=== PATIENT | male | born 1960 | race Caucasian/White ===

== ENCOUNTER 2018-09-07 13:20 | Observation (INO) ==
--- NOTE | 2018-09-07 13:56 | Emergency Department Note ---
Disposition Clinical Impression: ACS (acute coronary syndrome) Disposition: Admitted As Inpatient Condition: Good Referrals: Ana M Donald CNP [Primary Care Provider] - Forms: ED Satisfaction Letter General Adult HPI - General Chief complaint: ED Chest Pain Stated complaint: chest pain Time Seen by Provider: 09/07/18 13:32 Source: patient Limitations: no limitations Nursing Notes Reviewed: Yes Vital Signs Reviewed: Yes - History of Present Illness HPI Narrative: 57-year-old male history of diabetes former smoker hypertension hypercholesterolemia presents with his daughter ambulatory for chest pressure for the past 3 days getting worse. He says it is worse when he moves around last seconds to minutes. General bit winded. No nausea no diaphoresis nor radiation to the neck trauma shoulder on either side. Patient said he had a stress test back in 2012 which prompted a cardiac catheterization which showed avascular with a 30% lesion. They did not do balloon angioplasty nor stent at that time. Patient has had no cardiac stress test in follow-up since then. Patient's pain is good state of health until about the past 3-4 days. Patient is pain-free at this time. Here for further evaluation Pain Scale: 5 - Related Data Home Medications Medication Instructions Recorded Confirmed Unable To Obtain [Unable to Obtain] 09/07/18 09/07/18 Allergies Allergy/AdvReac Type Severity Reaction Status Date / Time No Known Allergies Allergy Verified 09/07/18 13:31 All systems ED: reviewed and negative except as stated. Cardiovascular: Reports: chest pain Respiratory: Reports: dyspnea Past Medical History - Past Medical History Attestation: Yes The following information was validated with the patient. Source: patient Medical history: Reports: diabetes, hyperlipidemia, hypertension, other Psychiatric history: Reports: no psych history - Social History Smoking Status: Never smoker Smokeless Tobacco Status: No Alcohol use: Reports: none Drug use: Reports: none Physical Exam - General Limitations: no limitations General appearance: alert, in no apparent distress - Head Head exam: atraumatic, normocephalic - Eye Eye exam: Present: normal appearance, PERRL - ENT ENT exam: normal exam, normal oropharynx - Neck Neck exam: Present: normal inspection, full ROM - Chest Chest inspection: Present: normal inspection, symmetric chest wall rise - Respiratory Respiratory exam: Present: normal lung sounds bilaterally - Cardiovascular Cardiovascular exam: Present: regular rate, normal rhythm - Abdominal Exam Abdominal exam: Present: soft, Non-Tender - Extremities Exam Extremities exam: Present: normal inspection, full ROM - Expanded Lower Extremity Exam Neurovascular/Tendon exam: Present: normal capillary refill, pulse deficit - Back Exam Back exam: Present: normal inspection, full ROM - Neurological Exam Neurological exam: Present: alert, oriented X3, CN II-XII intact - Psychiatric Psychiatric exam: Present: normal affect, normal mood - Skin Skin exam: Present: warm, dry, intact Course - Reevaluation(s) Reevaluation #1: Patient's HEART scores for, we will undergo troponin chest x-ray and screening labs. Other than showed decision-making the patient and will come up with the plan. Disposition pending Time: 13:58 Reevaluation #2: ED workup is been completed. Chest x-ray screening labs troponin negative were within normal limits. Please see Lee decision-making tool from the chest pending decision from the [facility] patient's heart score 4 translates into a risk of 17% we will been over the various options and patient and family had a discussion and agree upon admission with stress testing in the morning. Patient will be getting some analgesics for his transient chest pressure hospitalist paged for admission to physician pending Time: 14:50 Vital Signs Temperature 97.8 F 09/07/18 13:28 Pulse Rate 109 09/07/18 13:28 Respiratory Rate 16 09/07/18 13:28 Blood Pressure 148/94 09/07/18 13:28 O2 Sat by Pulse Oximetry 97 09/07/18 13:28 Temperature 97.8 F 09/07/18 13:28 Pulse Rate 109 09/07/18 13:28 Respiratory Rate 16 09/07/18 13:28 Blood Pressure 148/94 09/07/18 13:28 O2 Sat by Pulse Oximetry 97 09/07/18 13:28 Oxygen Delivery Oxygen Delivery Room Air Medical Decision Making - Medical Records Medical records reviewed: Yes I reviewed the patient's medical records. - Lab Data Lab results reviewed: Yes I reviewed the patient's lab results. Result diagrams: 09/07/18 13:40 09/07/18 13:40 Lab Results 09/07/18 09/07/18 09/07/18 Range/Units 13:40 13:40 14:22 WBC 8.8 (4.3-11.1) K/mcL RBC 5.08 (4.19-5.50) M/mcL Hgb 15.3 (12.9-16.9) g/dL Hct 44.7 (37.5-50.1) % MCV 88.0 (83.0-100.0) fL MCH 30.1 (28.0-33.3) pg MCHC 34.2 (31.6-35.5) g/dL RDW 11.9 (11.5-14.5) % Plt Count 186 (140-400) K/mcL MPV 10.0 (9.4-12.4) fL Immature Gran % 0.3 (0-4) % Seg Neutrophils % 64.9 % Lymphocytes % 23.9 % Monocytes % 8.2 % Eosinophils % 2.4 % Basophils % 0.3 % Neutrophils # 5.7 (1.6-8.9) K/mcL Lymphocytes # 2.1 (0.6-4.6) K/mcL Monocytes # 0.7 (0.0-1.3) K/mcL Eosinophils # 0.2 (0.0-0.6) K/mcL Basophils # 0.0 (0.0-0.2) K/mcL Sodium 141 (136-145) mEq/L Potassium 4.0 (3.5-5.1) mEq/L Chloride 109 H (98-107) mEq/L Carbon Dioxide 20 L (23-29) mEq/L BUN 23 H (6-20) mg/dL Creatinine 0.91 (0.70-1.30) mg/dL Est GFR ( Amer) > 60 (> 60) Est GFR (Non-Af Amer) > 60 (> 60) BUN/Creatinine Ratio 25 (6-26) Glucose 115 H (70-105) mg/dL Calculated Osmolality 297 (280-300) Calcium 9.1 (8.6-10.3) mg/dL Troponin I < 0.03 (< 0.04) ng/mL Urine Color Yellow (Yellow) Urine Clarity Clear (Clear) Urine pH 5.5 (5.0-8.0) pH Units Ur Specific [place] 1.028 H (1.010-1.025) Urine Protein Negative (Neg-Trace) mg/dL Urine Glucose (UA) 250 H (Normal) mg/dL Urine Ketones Trace H (Negative) mg/dL Urine Blood Negative (Negative) Urine Nitrite Negative (Negative) Urine Bilirubin Negative (Negative) Urine Urobilinogen Normal (Normal) mg/dL Ur Leukocyte Esterase Negative (Negative) Ur Culture Indicated? NO (NO) - Radiology Data Radiology results reviewed: Yes I reviewed the patient's radiology results. - EKG Data EKG #1 EKG attestation: Yes I reviewed and interpreted this EKG. EKG results narrative: Twelve-lead EKG interpreted without the benefit of Cardiologic assistance reveals the following: Sinus tachycardia at about 104 bpm T-wave abnormalities are seen with flattening in leads 3 and aVF and V6 no signs of any acute ischemic changes. No acute changes when compared to a prior EKG dated 08/28/2014
[2018-09-07 14:00] LABS: Basophils % 0.3 %; Eosinophils # 0.2 K/mcL (0.0-0.6); Eosinophils % 2.4 %; Hematocrit 44.7 % (37.5-50.1); Hemoglobin 15.3 g/dL (12.9-16.9); Immature Granulocytes % 0.3 % (0-4); Lymphocytes # 2.1 K/mcL (0.6-4.6); Lymphocytes % 23.9 %; Mean Corpuscular HGB Conc 34.2 g/dL (31.6-35.5); Mean Corpuscular Hemoglobin 30.1 pg (28.0-33.3); Monocytes # 0.7 K/mcL (0.0-1.3); Monocytes % 8.2 %; Neutrophils # 5.7 K/mcL (1.6-8.9); Platelet Count 186 K/mcL (140-400); Red Blood Count 5.08 M/mcL (4.19-5.50); Red Cell Distribution Width 11.9 % (11.5-14.5); Segmented Neutrophils % 64.9 %
[2018-09-07 14:14] LABS: BUN/Creatinine Ratio 25 (6-26); Blood Urea Nitrogen 23 mg/dL (6-20); Calcium 9.1 mg/dL (8.6-10.3); Carbon Dioxide 20 mEq/L (23-29); Chloride 109 mEq/L (98-107); Glucose 115 mg/dL (70-105); Osmolality,Calculated 297 (280-300); Sodium 141 mEq/L (136-145); eGFR For Non-African Americans > 60 (> 60)
[2018-09-07 14:15] LABS: Troponin I < 0.03 ng/mL (< 0.04)
[2018-09-07 14:41] LABS: Bilirubin,Urine Negative (Negative); Blood,Urine Negative (Negative); Clarity,Urine Clear (Clear); Color,Urine Yellow (Yellow); Glucose,Urine (UA) 250 mg/dL (Normal); Ketones,Urine Trace mg/dL (Negative); Leukocyte Esterase,Urine Negative (Negative); Nitrite,Urine Negative (Negative); PH,Urine 5.5 pH Units (5.0-8.0); Protein,Urine Negative (Neg-Trace); Specific Gravity,Urine 1.028 (1.010-1.025); Urobilinogen,Urine Normal (Normal)
[2018-09-07] MEDS ORDERED: Ondansetron 4 MG/2 ML VIAL IVP ONE (14:55)
[2018-09-07] MEDS ORDERED: *HR* FentaNYL (PF) 100 MCG/2 ML VIAL IVP ONE (14:55)
[2018-09-07] MEDS ORDERED: Acetaminophen 325 MG TABLET PO PRN (15:55)
[2018-09-07] MEDS ORDERED: Naloxone 0.4 MG/ML INJ IVP PRN (15:55)
[2018-09-07] MEDS ORDERED: MOM Conc 10 ML UD.LIQ PO PRN (15:55)
[2018-09-07] MEDS ORDERED: *HR* Promethazine 25 MG/ML VIAL IVP PRN (15:55)
[2018-09-07] MEDS ORDERED: traMADol 50 MG TABLET PO PRN (15:55)
[2018-09-07] MEDS ORDERED: Ondansetron 4 MG/2 ML VIAL IVP PRN (15:55)
[2018-09-07] MEDS ORDERED: Aspirin 325 MG TABLET PO ONE (15:55)
[2018-09-07] MEDS ORDERED: Mag Hydrox/Al Hydrox/Simeth 30 ML UDC PO PRN (15:55)
--- NOTE | 2018-09-07 16:01 | Internal Med History&Physical ---
Date of Encounter: 09/07/18 Time of Encounter: 15:59 Internal Medicine - H&P: HPI Admitted From: Home Plans for Post Hospital Care: Home History of present illness: Mr. Ta is a 57 year old male history of diabetes former smoker hypertension hypercholesterolemia presents with his daughter ambulatory for chest pressure for the past 3 days getting worse. He says it is worse when he moves around last seconds to minutes. No nausea no diaphoresis nor radiation to the neck trauma shoulder on either side. Patient said he had a stress test back in 2012 which prompted a cardiac catheterization which showed a 30% lesion. They did not do balloon angioplasty nor stent at that time. Patient has had no cardiac stress test in follow-up since then. In the ED, patient vital signs were stable, labs were unremarkable including a negative troponin. EKG has no acute ST-T change. Patient is admitted for further evaluation and management. CODE STATUS discussed with patient, he wishes for code. Past Med Surg Social Fam HX - Past Medical History Medical history: diabetes, hyperlipidemia, hypertension, other Psychiatric history: no psych history - Social History Smoking Status: Never smoker Smokeless Tobacco Status: No Alcohol use: none Drug use: none Internal Medicine - H&P: Meds Unable To Obtain [Unable to Obtain] 09/07/18 [History] Allergy/AdvReac Type Severity Reaction Status Date / Time No Known Allergies Allergy Verified 09/07/18 13:31 All Systems PM: A 10-system review of systems was performed and is negative for pertinent findings except as documented above in the HPI. Review of systems: REVIEW OF SYSTEMS: CONSTITUTIONAL: No weight loss, fever, chills, weakness or fatigue. HEENT: Eyes: No visual loss, blurred vision, double vision or yellow sclerae. Ears, Nose, Throat: No hearing loss, sneezing, congestion, runny nose or sore throat. SKIN: No rash or itching. CARDIOVASCULAR: see HPI. RESPIRATORY: No shortness of breath, cough or sputum. GASTROINTESTINAL: No anorexia, nausea, vomiting or diarrhea. No abdominal pain or blood. GENITOURINARY: No dysuria, urgency, or frequency. NEUROLOGICAL: No headache, dizziness, syncope, paralysis, ataxia, numbness or tingling in the extremities. No change in bowel or bladder control. MUSCULOSKELETAL: No muscle, back pain, joint pain or stiffness. HEMATOLOGIC: No anemia, bleeding or bruising. LYMPHATICS: No enlarged nodes. No history of splenectomy. PSYCHIATRIC: No history of depression or anxiety. ENDOCRINOLOGIC: No reports of sweating, cold or heat intolerance. No polyuria or polydipsia. - Constitutional Vitals: Temp Pulse Resp BP Pulse Ox 97.8 F 109 16 135/89 97 09/07/18 13:28 09/07/18 13:28 09/07/18 15:55 09/07/18 15:55 09/07/18 13:28 General appearance: Present: A&O X 3 Exam: PHYSICAL EXAMINATION: GENERAL APPEARANCE: The patient is alert, oriented and in no acute distress. HEENT: Head is normocephalic. The sinuses are nontender. Pupils are equal and reactive. The nares are patent. Oropharynx clear without lesions. NECK: Supple without lymphadenopathy. HEART: Regular rate and rhythm. LUNGS: No crackles or wheezes are heard. ABDOMEN: Soft, nontender, nondistended with good bowel sounds heard. Inguinal area is normal. EXTREMITIES: Without cyanosis, clubbing or edema. NEUROLOGICAL: Gross nonfocal. SKIN: Warm and dry without any rash. Internal Med - H&P Results - Labs CBC & Chem 7: 09/07/18 13:40 09/07/18 13:40 Labs: Short CBC 09/07/18 Range/Units 13:40 WBC 8.8 (4.3-11.1) K/mcL Hgb 15.3 (12.9-16.9) g/dL Hct 44.7 (37.5-50.1) % Plt Count 186 (140-400) K/mcL Neutrophils # 5.7 (1.6-8.9) K/mcL BMP 09/07/18 13:40 Sodium 141 Potassium 4.0 Chloride 109 H Carbon Dioxide 20 L BUN 23 H Creatinine 0.91 Glucose 115 H Calcium 9.1 Cardiac Enzymes 09/07/18 Range/Units 13:40 Troponin I < 0.03 (< 0.04) ng/mL Urine 09/07/18 Range/Units 14:22 Urine Color Yellow (Yellow) Urine Clarity Clear (Clear) Urine pH 5.5 (5.0-8.0) pH Units Ur Specific [place] 1.028 H (1.010-1.025) Urine Protein Negative (Neg-Trace) mg/dL Urine Glucose (UA) 250 H (Normal) mg/dL - Impressions ITS Impressions Chest X-Ray 09/07/18 13:44 IMPRESSION: No acute findings. D/ / 09/07/2018 14:05:56 Mike Pearce MD / Marielena Colon Interpreting Provider: Mike Pearce MD - Assessment and Plan (1) Chest pain Current Visit: Yes Status: Acute Assessment and plan: 57-year-old male with past medical history of hypertension and hyperlipidemia presented with three-day history of chest pain/pressure. Patient had a remote LHC which showed a 30% lesion. First set of troponin was negative, EKG has no acute changes. We will continue cycling troponin telemetry monitoring, EKG as needed. Stress test and echocardiogram in the morning. Qualifiers: Chest pain type: unspecified Qualified Code(s): R07.9 - Chest pain, unspecified (2) HTN (hypertension) Current Visit: No Status: Chronic Assessment and plan: Continue monitoring BP, resume home medication once verified. Qualifiers: Hypertension type: essential hypertension Qualified Code(s): I10 - Essential (primary) hypertension (3) Hyperlipidemia Current Visit: No Status: Chronic Assessment and plan: Continue home medication. Qualifiers: Hyperlipidemia type: unspecified Qualified Code(s): E78.5 - Hyperlipidemia, unspecified (4) DVT prophylaxis Current Visit: Yes Status: Acute Assessment and plan: SCD and ambulation. - Time Spent With Patient Total time spent is greater than 50% in coordination of care (as documented) at patient's floor/unit and/or counseling patient: Greater than 35 minutes
[2018-09-07] MEDS ORDERED: *HR* Dextrose 50 % in Water (Syg) 50 ML SYRINGE IVP PRN (16:22)
[2018-09-07] MEDS ORDERED: Dextrose Gel 15 GM/37.5 ML TUBE PO PRN ×2 (16:22)
[2018-09-07] MEDS ORDERED: D5% in Water 1,000 ML IVC PRN (16:22)
[2018-09-07] MEDS: Insulin LISPRO 300 UNITS/3 ML VIAL SQ SCH (18:11)
[2018-09-07] MEDS ORDERED: Insulin LISPRO 300 UNITS/3 ML VIAL SQ SCH (21:00)
[2018-09-08 02:19] LABS: Basophils % 0.3 %; Eosinophils # 0.3 K/mcL (0.0-0.6); Hematocrit 41.1 % (37.5-50.1); Immature Granulocytes % 0.4 % (0-4); Lymphocytes # 2.9 K/mcL (0.6-4.6); Mean Corpuscular HGB Conc 33.3 g/dL (31.6-35.5); Mean Corpuscular Hemoglobin 29.7 pg (28.0-33.3); Mean Corpuscular Volume 89.2 fL (83.0-100.0); Mean Platelet Volume 10.2 fL (9.4-12.4); Monocytes # 0.9 K/mcL (0.0-1.3); Monocytes % 9.5 %; Neutrophils # 5.4 K/mcL (1.6-8.9); Platelet Count 184 K/mcL (140-400); Red Blood Count 4.61 M/mcL (4.19-5.50); Red Cell Distribution Width 11.9 % (11.5-14.5); Segmented Neutrophils % 56.8 %
[2018-09-08 02:20] LABS: Hemoglobin 13.7 g/dL (12.9-16.9)
[2018-09-08 02:39] LABS: Alanine Aminotransferase 15 Units/L (7-52); Albumin 3.9 g/dL (3.5-5.7); Albumin/Globulin Ratio 1.7 (1.1-2.2); Alkaline Phosphatase 49 Units/L (34-104); Aspartate Amino Transferase 12 Units/L (13-39); BUN/Creatinine Ratio 31 (6-26); Bilirubin,Total 0.5 mg/dL (0.3-1.0); Blood Urea Nitrogen 26 mg/dL (6-20); Calcium 8.9 mg/dL (8.6-10.3); Carbon Dioxide 24 mEq/L (23-29); Chloride 109 mEq/L (98-107); Chol/HDL Ratio 2.2 (0-4.9); Cholesterol 95 mg/dL (< 200); Globulin 2.3 g/dL (2.4-3.5); Glucose 130 mg/dL (70-105); HDL Cholesterol 44 mg/dL (40-59); LDL Cholesterol,Calculated 38 mg/dL (0-99); Magnesium 1.9 mg/dL (1.6-2.6); Osmolality,Calculated 297 (280-300); Sodium 140 mEq/L (136-145); Total Protein 6.2 g/dL (6.4-8.9); Triglycerides 64 mg/dL (< 150); eGFR For Non-African Americans > 60 (> 60)
[2018-09-08] MEDS ORDERED: Regadenoson 0.4 MG/5 ML SYRINGE IVP ONE (05:55)
[2018-09-08] MEDS: Insulin LISPRO 300 UNITS/3 ML VIAL SQ SCH ×2 (08:17→12:03)
[2018-09-08 08:58] LABS: Estimated Average Glucose 174 mg/dl; Hemoglobin A1C 7.7 %
[2018-09-08] MEDS ORDERED: Aspirin Enteric Coated 81 MG Tablet PO SCH (09:00)
[2018-09-08] MEDS ORDERED: Metoprolol XL (24 HR) Succ 50 MG TAB.ER.24H PO SCH (09:00)
[2018-09-08 10:50] VITALS: BP 122/81
--- NOTE | 2018-09-08 14:55 | Discharge Summary ---
- NOTES TO OUTPATIENT PROVIDER Notes to Outpatient Provider: f/u with PCP within a week. Orders not resulted at time of discharge: Pending orders 09/07/18 13:43 ECG 12 lead ECG [ECG] Stat 09/08/18 06:00 NM pepe perf SPECT multi [NM] Routine Date of Encounter: 09/08/18 Time of Encounter: 14:53 - Discharge Diagnosis (1) Chest pain Priority: Primary Status: Acute Qualifiers: Chest pain type: unspecified Qualified Code(s): R07.9 - Chest pain, unspecified (2) HTN (hypertension) Priority: Secondary Status: Chronic Qualifiers: Hypertension type: essential hypertension Qualified Code(s): I10 - Essential (primary) hypertension (3) Hyperlipidemia Priority: Secondary Status: Chronic Qualifiers: Hyperlipidemia type: unspecified Qualified Code(s): E78.5 - Hyperlipidemia, unspecified (4) DVT prophylaxis Priority: Primary Status: Acute Hospital course: Mr. Ta is a 57 year old male history of diabetes former smoker hypertension hypercholesterolemia presents with his daughter ambulatory for chest pressure for the past 3 days getting worse. He says it is worse when he moves around last seconds to minutes. No nausea no diaphoresis nor radiation to the neck trauma shoulder on either side. Patient said he had a stress test back in 2012 which prompted a cardiac catheterization which showed a 30% lesion. They did not do balloon angioplasty nor stent at that time. Patient has had no cardiac stress test in follow-up since then. In the ED, patient vital signs were stable, labs were unremarkable including a negative troponin. EKG has no acute ST-T change. Patient is admitted for further evaluation and management. Further tests showed negative troponin for 3 consecutive doses, telemetry monitoring has no acute ST-T change. Patient underwent stress nuclear test and echocardiogram which both are unremarkable. Patient will be discharged home today, he was instructed to continue follow-up with PCP within a week. Discharge discussed with: patient Time spent discussing smoking cessation with patient: more than 10 minutes - Time Spent with Patient Total time spent providing and/or coordinating discharge services: Time spent: Greater than 30 minutes - Discharge Medications Prescriptions: Continue Aspirin 81 mg PO DAILY Atorvastatin Calcium [Lipitor] 20 mg PO DAILY Gabapentin [Neurontin] 300 mg PO 1-2XD Glimepiride [Amaryl] 2 mg PO DAILY Losartan Potassium 50 mg PO DAILY Metformin HCl [Glumetza] 1,000 mg PO BID Nabumetone [Relafen] 500 mg PO BID PRN PRN Reason: Pain Tamsulosin [Flomax] 0.4 mg PO DAILY Home Medications: Aspirin 81 mg PO DAILY 09/08/18 [History] Atorvastatin Calcium [Lipitor] 20 mg PO DAILY 09/08/18 [History] Gabapentin [Neurontin] 300 mg PO 1-2XD 09/08/18 [History] Glimepiride [Amaryl] 2 mg PO DAILY 09/08/18 [History] Losartan Potassium 50 mg PO DAILY 09/08/18 [History] Metformin HCl [Glumetza] 1,000 mg PO BID 09/08/18 [History] Nabumetone [Relafen] 500 mg PO BID PRN 09/08/18 [History] Tamsulosin [Flomax] 0.4 mg PO DAILY 09/08/18 [History] Allergies/Adverse Reactions: Allergy/AdvReac Type Severity Reaction Status Date / Time No Known Allergies Allergy Verified 09/08/18 14:20 Date of admission: 09/07/18 15:24 Primary care physician: Ana M oDnald CNP Anticipated date of discharge: 09/08/18 - Constitutional Vitals: Temp Pulse Resp BP Pulse Ox 97.8 F 78 16 122/81 94 09/08/18 02:30 09/08/18 02:30 09/08/18 02:30 09/08/18 10:42 09/08/18 02:30 General appearance: Present: A&O X 3 Exam: PHYSICAL EXAMINATION: GENERAL APPEARANCE: The patient is alert, oriented and in no acute distress. HEENT: Head is normocephalic. The sinuses are nontender. Pupils are equal and reactive. The nares are patent. Oropharynx clear without lesions. NECK: Supple without lymphadenopathy. HEART: Regular rate and rhythm. LUNGS: No crackles or wheezes are heard. ABDOMEN: Soft, nontender, nondistended with good bowel sounds heard. Inguinal area is normal. EXTREMITIES: Without cyanosis, clubbing or edema. NEUROLOGICAL: Gross nonfocal. SKIN: Warm and dry without any rash. - Patient Status Disposition: Home, Self-Care Condition: Good Functional capacity at discharge: independent ambulation Overall status at discharge: patient is progressing back to baseline - Discharge Instructions Follow Up With: Ana M Donald CNP [Primary Care Provider] - 09/11/18 10:30 am () - Diet and Activity Activity: increase activity as tolerated Diet: advance to your usual diet
--- NOTE | 2018-09-09 17:48 | Electrocardiograph Report ---
[address] [place], [place] [address] Test Date: 2018-09-07 Pat Name: Pop Ta Department: EXAM[facility]2 Room: 3B32 Gender: Microbiology Lab Analyst: : [id number] Requested By: Melania Lomax Order Number: [id number] Reading MD: Phyllis Gill Measurements Intervals [place] Rate: 104 P: 67 IL: 132 QRS: 56 QRSD: 84 T: 37 QT: 312 QTc: 411 Interpretive Statements Sinus tachycardia Borderline ST wave abnormalities Electronically Signed On 09-09-2018 17:47:18 EDT by Phyllis Gill
== END 2018-09-08 15:37 | disposition home or self-care (01) ==
LOC: 3BNU 13:20 → EMEROOARM 13:20 → 3BNU 16:47
PROVIDERS: ADMIT Internal Medicine; ATTEND Internal Medicine

== ENCOUNTER 2020-11-18 17:38 | Observation (INO) ==
[2020-11-18 18:02] LABS: Basophils % 0.4 %; Eosinophils # 0.2 K/mcL (0.0-0.6); Eosinophils % 1.9 %; Hematocrit 46.2 % (37.5-50.1); Hemoglobin 15.8 g/dL (12.9-16.9); Immature Granulocytes % 0.2 % (0-4); Lymphocytes % 35.3 %; Mean Corpuscular HGB Conc 34.2 g/dL (31.6-35.5); Mean Corpuscular Hemoglobin 29.8 pg (28.0-33.3); Monocytes # 0.8 K/mcL (0.0-1.3); Monocytes % 9.5 %; Neutrophils # 4.4 K/mcL (1.6-8.9); Platelet Count 196 K/mcL (140-400); Red Blood Count 5.31 M/mcL (4.19-5.50); Segmented Neutrophils % 52.7 %; White Blood Count 8.4 K/mcL (4.3-11.1)
[2020-11-18 18:25] LABS: BUN/Creatinine Ratio 20 (6-26); Blood Urea Nitrogen 22 mg/dL (8-23); Calcium 9.7 mg/dL (8.6-10.3); Carbon Dioxide 23 mEq/L (23-29); Chloride 108 mEq/L (98-107); Glucose 100 mg/dL (70-105); Osmolality,Calculated 291 (280-300); Potassium 4.1 mEq/L (3.5-5.1); Sodium 139 mEq/L (136-145); Troponin I < 0.03 ng/mL (< 0.04); eGFR For African Americans > 60 (> 60); eGFR For Non-African Americans > 60 (> 60)
[2020-11-18] MEDS ORDERED: Aspirin 325 MG TABLET PO ONE ×2 (19:34→19:37)
[2020-11-18] MEDS ORDERED: Naloxone 0.4 MG/ML INJ IVP PRN (19:36)
[2020-11-18] MEDS ORDERED: Ondansetron 4 MG/2 ML VIAL IVP PRN (19:36)
[2020-11-18] MEDS ORDERED: Perflutren Lipid Microsphere 1.3 ML in 0.9 % Sodium Chloride 8.7 ML IVP PRN (19:39)
[2020-11-18] MEDS: Acetaminophen 325 MG TABLET PO PRN (20:22)
[2020-11-19 02:41] LABS: Basophils % 0.4 %; Eosinophils # 0.2 K/mcL (0.0-0.6); Eosinophils % 2.2 %; Hemoglobin 14.3 g/dL (12.9-16.9); Immature Granulocytes % 0.3 % (0-4); Lymphocytes # 2.7 K/mcL (0.6-4.6); Mean Corpuscular HGB Conc 34.9 g/dL (31.6-35.5); Mean Corpuscular Hemoglobin 30.2 pg (28.0-33.3); Mean Corpuscular Volume 86.5 fL (83.0-100.0); Mean Platelet Volume 10.3 fL (9.4-12.4); Monocytes # 0.8 K/mcL (0.0-1.3); Monocytes % 10.6 %; Neutrophils # 3.6 K/mcL (1.6-8.9); Platelet Count 163 K/mcL (140-400); Red Blood Count 4.74 M/mcL (4.19-5.50); Red Cell Distribution Width 11.9 % (11.5-14.5); Segmented Neutrophils % 49.5 %; White Blood Count 7.3 K/mcL (4.3-11.1)
[2020-11-19 02:48] LABS: INR 1.1; Prothrombin Time 12.4 Seconds (9.4-12.1)
[2020-11-19 03:02] LABS: Alanine Aminotransferase 16 Units/L (7-52); Albumin 3.8 g/dL (3.5-5.7); Albumin/Globulin Ratio 1.7 (1.1-2.2); Alkaline Phosphatase 46 Units/L (34-104); Aspartate Amino Transferase 15 Units/L (13-39); BUN/Creatinine Ratio 21 (6-26); Bilirubin,Total 0.5 mg/dL (0.3-1.0); Blood Urea Nitrogen 20 mg/dL (8-23); Carbon Dioxide 22 mEq/L (23-29); Chloride 108 mEq/L (98-107); Cholesterol 96 mg/dL (< 200); Globulin 2.3 g/dL (2.4-3.5); Glucose 219 mg/dL (70-105); HDL Cholesterol 32 mg/dL (40-59); LDL Cholesterol,Calculated 44 mg/dL (< 100); Magnesium 1.9 mg/dL (1.6-2.6); Osmolality,Calculated 295 (280-300); Potassium 3.7 mEq/L (3.5-5.1); Sodium 138 mEq/L (136-145); Total Protein 6.1 g/dL (6.4-8.9); Triglycerides 102 mg/dL (< 150); Troponin I < 0.03 ng/mL (< 0.04); eGFR For African Americans > 60 (> 60); eGFR For Non-African Americans > 60 (> 60)
[2020-11-19 03:13] LABS: Thyroid Stimulating Hormone 1.414 mcIU/mL (0.340-5.600)
[2020-11-19 03:41] LABS: Bilirubin,Urine Negative (Negative); Blood,Urine Negative (Negative); Clarity,Urine Clear (Clear); Color,Urine Colorless (Yellow); Glucose,Urine (UA) >=1000 mg/dL (Normal); Ketones,Urine Negative (Negative); Leukocyte Esterase,Urine Negative (Negative); Nitrite,Urine Negative (Negative); Protein,Urine Negative (Neg-Trace); RBC,Urine 0-3 per hpf (0-3); Specific Gravity,Urine 1.012 (1.010-1.025); Urobilinogen,Urine Normal (Normal); WBC,Urine 0-3 per hpf (0-3)
[2020-11-19] MEDS: Aspirin 81 MG TAB.CHEW PO SCH (08:46)
[2020-11-19] MEDS: *HR* Enoxaparin 30 MG/0.3 ML SYRINGE SQ SCH (08:47)
[2020-11-19] MEDS ORDERED: Regadenoson 0.4 MG/5 ML SYRINGE IVP ONE (10:23)
[2020-11-19] MEDS ORDERED: *HR* Dextrose 50 % in Water (Vial) 50 ML VIAL IVP PRN (16:38)
[2020-11-19] MEDS ORDERED: Dextrose Gel 15 GM/37.5 ML TUBE PO PRN ×2 (16:38)
[2020-11-19] MEDS ORDERED: D5% in Water 1,000 ML IVC PRN (16:38)
[2020-11-19] MEDS: Insulin DETEMIR 100 UNIT/ML X5UNITS SUBQ SCH (20:54)
[2020-11-20 03:32] LABS: Hematocrit 42.7 % (37.5-50.1); Hemoglobin 14.3 g/dL (12.9-16.9); Mean Corpuscular HGB Conc 33.5 g/dL (31.6-35.5); Mean Corpuscular Hemoglobin 29.5 pg (28.0-33.3); Mean Corpuscular Volume 88.2 fL (83.0-100.0); Mean Platelet Volume 10.9 fL (9.4-12.4); Platelet Count 177 K/mcL (140-400); Red Blood Count 4.84 M/mcL (4.19-5.50); White Blood Count 8.2 K/mcL (4.3-11.1)
[2020-11-20 03:52] LABS: BUN/Creatinine Ratio 21 (6-26); Blood Urea Nitrogen 21 mg/dL (8-23); Carbon Dioxide 24 mEq/L (23-29); Chloride 107 mEq/L (98-107); Glucose 121 mg/dL (70-105); Osmolality,Calculated 290 (280-300); Sodium 138 mEq/L (136-145); eGFR For African Americans > 60 (> 60); eGFR For Non-African Americans > 60 (> 60)
[2020-11-20] MEDS: Insulin LISPRO 300 UNITS/3 ML VIAL SUBQ SCH ×3 (08:26→17:18)
[2020-11-20] MEDS: Aspirin 81 MG TAB.CHEW PO SCH (08:26)
[2020-11-20] MEDS: *HR* Enoxaparin 30 MG/0.3 ML SYRINGE SQ SCH (08:31)
[2020-11-20] MEDS: Acetaminophen 325 MG TABLET PO PRN (08:32)
[2020-11-20] MEDS: Insulin DETEMIR 100 UNIT/ML X5UNITS SUBQ SCH (20:55)
[2020-11-21 05:22] LABS: Hematocrit 44.3 % (37.5-50.1); Hemoglobin 15.1 g/dL (12.9-16.9); Mean Corpuscular HGB Conc 34.1 g/dL (31.6-35.5); Mean Corpuscular Hemoglobin 29.5 pg (28.0-33.3); Mean Corpuscular Volume 86.7 fL (83.0-100.0); Mean Platelet Volume 10.2 fL (9.4-12.4); Platelet Count 174 K/mcL (140-400); Red Blood Count 5.11 M/mcL (4.19-5.50); Red Cell Distribution Width 11.9 % (11.5-14.5); White Blood Count 9.1 K/mcL (4.3-11.1)
[2020-11-21 05:44] LABS: BUN/Creatinine Ratio 21 (6-26); Blood Urea Nitrogen 20 mg/dL (8-23); Calcium 9.1 mg/dL (8.6-10.3); Carbon Dioxide 24 mEq/L (23-29); Chloride 108 mEq/L (98-107); Glucose 104 mg/dL (70-105); Osmolality,Calculated 291 (280-300); Potassium 3.9 mEq/L (3.5-5.1); Sodium 139 mEq/L (136-145); eGFR For African Americans > 60 (> 60); eGFR For Non-African Americans > 60 (> 60)
[2020-11-21] MEDS: Insulin LISPRO 300 UNITS/3 ML VIAL SUBQ SCH ×2 (07:02→10:55)
[2020-11-21] MEDS: Aspirin 81 MG TAB.CHEW PO SCH (08:13)
[2020-11-21] MEDS ORDERED: *HR* Enoxaparin 40 MG/0.4 ML SYRINGE SQ SCH (09:00)
[2020-11-21] MEDS ORDERED: 0.9 % Sodium Chloride 1,000 ML ONE ×2 (10:05→10:21)
[2020-11-21] MEDS ORDERED: *HR* Midazolam HCl 2 MG/2 ML VIAL ONE (10:17)
[2020-11-21] MEDS ORDERED: *HR* FentaNYL (PF) 100 MCG/2 ML VIAL ONE (10:17)
[2020-11-21] MEDS ORDERED: ISOVUE-370 200 ML INFUS..BTL ONE (10:21)
[2020-11-21] MEDS ORDERED: Nitroglycerin 1,000 MCG/5 ML VIAL IV ONE (10:21)
[2020-11-21] MEDS ORDERED: *HR* Heparin 10,000 UNIT/10 ML VIAL ONE (10:21)
[2020-11-21] MEDS ORDERED: Heparin 1,000 UNITS/500 mL 500 ML ONE (10:21)
[2020-11-21 17:25] VITALS: BP 99/70
[2020-11-22] MEDS ORDERED: *HR* Enoxaparin 40 MG/0.4 ML SYRINGE SQ SCH (06:00)
== END 2020-11-21 17:15 | disposition home or self-care (01) ==
LOC: 2ANU 17:38 → EMEROOARM 17:38 → 2ANU 20:33
PROVIDERS: ADMIT Student in an Organized Health Care Education/Training Program; ATTEND Student in an Organized Health Care Education/Training Program